=== PATIENT | male | born 1950 | race Caucasian/White ===

== ENCOUNTER → 2019-07-26 13:34 | Outpatient (BNVA) | payer OTHER, SELFPAY | PROVIDERS: Visit Provider Otolaryngology | DX: R09.81 Nasal congestion (principal); J34.2 Deviated nasal septum; J34.3 Hypertrophy of nasal turbinates; F17.210 Nicotine dependence, cigarettes, uncomplicated | CPT/HCPCS: 99204; 99214 ==

== ENCOUNTER → 2019-08-31 12:49 | Outpatient (BNVA) | payer OTHER, SELFPAY | PROVIDERS: PCP Family Medicine; Visit Provider Otolaryngology | DX: J34.2 Deviated nasal septum (principal); J34.3 Hypertrophy of nasal turbinates; R09.81 Nasal congestion; F17.210 Nicotine dependence, cigarettes, uncomplicated | CPT/HCPCS: 99213; 99214 ==

== ENCOUNTER 2019-09-05 05:50 | Day surgery (SDC) | payer OTHER, SELFPAY ==
[2019-09-04 14:07] VITALS: BMI 24.5
[2019-09-05] VITALS (8 sets, daily range): BP systolic 85–163; BP diastolic 56–107; PULSE 78–119; RESP 16–24; TEMP 36.1–36.6; O2SAT 95–98
[2019-09-05] MEDS: sodium chloride 0.9% 1,000 ML 30 ML IV (06:25)
--- NOTE | 2019-09-05 06:33 | W.PM.OPSUD ---
Surgery/Procedure H&P Update DATE OF PROCEDURE: September 05, 2019 DATE H&P PERFORMED: 08/31/19 H&P UPDATE INFORMATION: I have reviewed H&P completed within last 30 days, I have examined patient prior to procedure and No changes to prior documentation PREOP DIAGNOSIS: deviated septum PLANNED PROCEDURE: Operation Date: 09/05/19 07:00 Proposed Procedures p Nasal septum reconstruction and bilateral inferior turbinate reduction ([id number])(Bilateral) - Francisco Mascorro MD
--- NOTE | 2019-09-05 06:47 | ANES.PREANE2 ---
Pre-Anesthetic Assessment Pre-Anesthetic Assessment: Height/Weight: Height 1.8 m Weight 79.832 kg Temp Pulse Resp BP Pulse Ox 97.8 F 78 18 126/69 96 09/05/19 06:05 09/05/19 06:05 09/05/19 06:05 09/05/19 06:05 09/05/19 06:05 Preop Diagnosis: deviated septum Proposed Procedure: Operation Date: 09/05/19 07:00 Proposed Procedures p Nasal septum reconstruction and bilateral inferior turbinate reduction ([id number])(Bilateral) - Francisoc Mascorro MD Familial anesthetic complications: NO hx of anesthesia Was Beta Bernadette taken within 24 hours: N/A Last intake: Intake Last Liquid Date 09/04/19 Last Liquid Time 19:30 Last Solid Date 09/04/19 Last Solid Time 19:30 Social: Social History: Alcohol (2 beers daily) and Tobacco Packs per day: 1 ppd Exam: Pre-Anes Outpt Exam: alert, oriented x 3, clear to auscultation bilaterally and regular rate & rhythm Airway: Cervical ROM: WNL MP: 2 Dentition: Chipped and Loose Additional comments: Lower front teeth are loose, upper tooth is loose Pulmonary: Pulmonary: COPD (? not diagnosed) and URI Comments: sinus drainage + phlegm cough, no fevers Patient counseled on risk of proceding with URI (bronchospasm hypoxia) CV/HEM: CV/HEM: HTN : : None reported Hepatic: Hepatic: None reported GI: GI: None reported Metabolic: Metabolic: None reported Musc/skel: Musc/skel: None reported Neuropsych: Neuropsych: None reported Anesthetic Plan: ASA status: 2 Anesthesia: General Risk of > 500 ml blood loss (7ml/kg in children): No Meds/Allergies Current Medications: Current Medications Generic Name Dose Route Start Last Admin Trade Name Freq PRN Reason Stop Dose Admin Sodium Chloride 1,000 mls @ 30 ml s/hr 09/05/19 05:45 09/05/19 06:25 Sodium Chloride 0.9% IV 09/06/19 05:44 30 mls/hr .Q24H AYLIN Administration PFSH Anesthesia PFSH: Social History Smoking and tobacco status: current every day smoker cigarettes Packs smoked per day: 1 Years cigarettes smoked: 55 Alcohol intake: current Alcohol intake frequency: 0-2 Drinks per Day Alcohol type: beer Data Anesthesia Cardiac Studies: No Data to Display
[2019-09-05] MEDS: oxymetazoline 0.05% Nasal Spray 15 mL 2 SPRAY NOSTRIL-B (07:26)
[2019-09-05] MEDS: neomycin-poly-bacitracin oint 28 gm 1 APPLIC TOPICAL (07:31)
--- NOTE | 2019-09-05 07:49 | PM.OP ---
Operative Report Date of procedure: September 05, 2019 Pre-op Diagnosis: deviated septum, turbinate hypertrophy Post-op diagnosis: same Procedure Done: Nasal septal reconstruction, bilateral outfracture of the inferior nasal turbinates, bilateral inferior nasal turbinate reduction Surgeon: Francisco Mascorro Anesthesia: General Complications: None Findings: Severely deviated septum, hypertrophic turbinates Condition: stable Disposition: PACU Brief History: Vicente is a 69-year-old male who has nasal obstruction secondary to severely deviated septum and hypertrophic nasal turbinates. Procedure: Patient was taken to the operating room under satisfactory general endotracheal anesthesia the nose was prepped draped and injected. Both right and left inferior nasal turbinates were outfractured and reduced with a combination of blunt and piecemeal submucosal dissection. A right hemitransfixion incision was created, a right anterior, posterior left anterior, posterior and bilateral inferior tunnels were created the quadrangular cartilage was removed from the perpendicular plate of the ethmoid and from the premaxilla. An inferior nasal strip measuring approximately 1.5 center by 2 mm were taken and the septum was returned to normal anatomic position. Under no tension the septum remains midline. The septum was fixed to the pre-spine fascia with a 4-0 chromic suture the hemitransfixion incision was closed with a 4-0 chromic suture bilateral [place] splints were placed left first right second these were affixed to the septum with a 3-0 nylon. The patient tolerated procedure well no complications occurred. He was allowed awaken and taken to the recovery room where he was observed. During the observation time postoperative care instruction counseling including detailed written and verbal instructions were given to the patient and his son. Once all parties verbalized understanding of all instructions and once the patient met discharge criteria he was discharged in satisfactory and stable condition.
== END 2019-09-05 09:19 | disposition home or self-care (01) ==
PROVIDERS: PCP Family Medicine; Visit Provider Otolaryngology
PROC: (CPT 31231; principal; 2019-09-05 07:00)
DX: J34.2 Deviated nasal septum (principal); J34.3 Hypertrophy of nasal turbinates; F17.210 Nicotine dependence, cigarettes, uncomplicated; I10 Essential (primary) hypertension; J44.9 Chronic obstructive pulmonary disease, unspecified
CPT/HCPCS: 30140; 30520; 12345; J0330; J1100; J2001; J2250; J2370; J2405; J2704; J3010; J7030

== ENCOUNTER → 2019-09-12 12:46 | Outpatient (BNVA) | payer OTHER, SELFPAY | PROVIDERS: PCP Family Medicine; Visit Provider Otolaryngology | DX: J34.2 Deviated nasal septum (principal); J34.3 Hypertrophy of nasal turbinates; R09.81 Nasal congestion; F17.210 Nicotine dependence, cigarettes, uncomplicated | CPT/HCPCS: 99024 ==